=== PATIENT | female | born 1945 ===

== ENCOUNTER 2019-10-25 12:40 | Emergency (ER) | payer OTHER ==
[~2019-10-25] VITALS: Ht 152.4 cm; Wt 88.5 kg
[2019-10-25] MEDS ORDERED: LOSARTAN-HCTZ1 EAC2 (13:53)
[2019-10-25] MEDS ORDERED: NAPROXEN500 MG PO (15:16)
[2019-10-25] MEDS ORDERED: SKELAXIN800 MG PO (15:16)
[2019-10-25] MEDS ORDERED: MEDROLPACK PO (15:17)
== END 2019-10-25 15:59 | disposition home or self-care (01) ==
LOC: ER 12:40
DX: M54.2 Cervicalgia (principal); M25.80 Other specified joint disorders, unspecified joint